=== PATIENT | female | born 1940 | race Caucasian/White ===

== ENCOUNTER → 2016-10-28 | Outpatient (CLI) | payer OTHER, BC ==
[~2016-10-28] MED LIST: CIPROFLOXACIN500 M1 PO; CITRACAL PO; COLESTID1 GM PO; DIOVAN; DIOVAN160 MG PO; FLAXSEED OIL PO; IBUPROFEN 200200 M1 PO; LOW DOSE ASPIRI81 M1 PO; MED FOR CHOLESTEROL; MULTI VITAMIN1 EACH PO; NORVASC5 MG PO; VITAMIN D1000 UNI1 PO
== END ==
LOC: RAD 03:04
DX: Z12.31 Encounter for screening mammogram for malignant neoplasm of breast (principal)

== ENCOUNTER 2017-01-23 10:40 | Emergency (ER) | payer OTHER, BC ==
[~2017-01-23] VITALS: Ht 165.1 cm; Wt 72.6 kg
[2017-01-23] MEDS ORDERED: FISH OIL 1,001000 M2 PO (10:48)
[2017-01-23] MEDS ORDERED: LEVOTHYROXIN0.075 MG PO (10:49)
[2017-01-23] MEDS ORDERED: MEDROLDOSEPACK PO (11:32)
[2017-01-23] MEDS ORDERED: ULTRAM 50MG TAB50 MG PO (11:32)
== END 2017-01-23 12:33 | disposition home or self-care (01) ==
LOC: ER 10:40
DX: M54.16 Radiculopathy, lumbar region (principal); F17.210 Nicotine dependence, cigarettes, uncomplicated

== ENCOUNTER → 2019-05-24 | Outpatient (CLI) | payer OTHER, BC ==
[~2019-05-24] MED LIST changes: +CITRACAL + BON1 EACH PO; +CVS BUFFERED A325 MG PO; +FISH OIL 1,001000 M2 PO; +FISH OIL 1,4001 EACH PO; +FLAXSEED OIL1000 MG PO; +HYDROCODON-ACE1 EAC7 PO; +MEDROLDOSEPACK PO; +MS CONTIN15 MG PO; +NEURONTIN 300300 M1 PO; +SYNTHROID75 MCG PO; +TYLENOL325 MG PO; +ULTRAM 50MG TAB50 MG PO; +VITAMIN D35000 UNIT PO
== END ==
LOC: BC 11:16
DX: Z12.31 Encounter for screening mammogram for malignant neoplasm of breast (principal)

== ENCOUNTER → 2020-06-26 | Outpatient (CLI) | payer OTHER, BC | LOC: RAD 06-20 11:26 | PROVIDERS: ATTEND Family Medicine | DX: Z12.31 Encounter for screening mammogram for malignant neoplasm of breast (principal) ==